=== PATIENT | male | born 1975 | race Caucasian/White ===

== ENCOUNTER 2016-09-25 06:55 | Inpatient (IN) ==
[2016-09-25] MEDS ORDERED: Ondansetron 4 MG/2 ML VIAL ONE (07:25)
[2016-09-25] MEDS ORDERED: *HR* FentaNYL (PF) 100 MCG/2 ML VIAL ONE ×3 (07:25→09:41)
[2016-09-25] MEDS ORDERED: *HR* Rocuronium Bromide 50 MG/5 ML VIAL ONE (07:25)
[2016-09-25] MEDS ORDERED: *HR* Midazolam HCl 2 MG/2 ML VIAL ONE (07:26)
[2016-09-25] MEDS ORDERED: *HR* Propofol 200 MG/20 ML VIAL IVP ONE (07:26)
--- NOTE | 2016-09-25 07:30 | Anesthesia Evaluation PreOp ---
Date of Encounter: 09/25/16 Time of Encounter: 07:27 - Past History Planned Operation: left Fem-Tib BPG Cardiac History: Denies any Significant Hx Pulmonary History: Smoker (smoked this morning), Pack/yr (2ppd x 20yrs) [employer]PAREL [employer]TERN[employer] History: Denies Any Significant HX Other Medical History: Denies Any Significant HX Anesthesia History: No Prior Anesthetic Complications (denies prior surgery) Alcohol Use: recent Drug use: none Medications and Allergies Aspirin [Lo-Dose Aspirin EC] 81 mg PO DAILY 09/05/16 [History] Atorvastatin [Lipitor] 40 mg PO HS 09/05/16 [History] Allergies No Known Allergies Allergy (Verified 09/05/16 06:37) - Meds/Allergy Pre-op Review Medications Reviewed: Yes Allergies Reviewed: Yes Beta Blockers on Current Med List: No Anesthesia Results - Labs Laboratory Tests 08/31/16 08/31/16 10:55 10:55 Hgb 18.7 H Hct 55.6 H Plt Count 269 Sodium 139 Potassium 3.7 BUN 8 Creatinine 0.95 - Imaging Additional studies: Echo shows EF 45 %, no wall motion abnormalities, no valvular abnormalities Anesthesia Exam Height: 70in Weight: 163lbs NPO (# of Hours): 8 Pain Scale: 0 Pain Scale Used: Numeric (1 - 10) - HEENT Pupil (Motor): EOMI Mallampati: II Teeth: Edentulous Oral Opening: Greater than 3 - [employer]PAREL PATTERN[employer] LOC: Oriented APPAREL PATTERN[employer] Motor: Normal RUE, Normal LUE, Normal RLE, Normal LLE, Normal Face [employer] PATTERN[employer] Sensory: Normal: RUE, LUE, RLE, LLE, Face - Cardiac Rhythm: Regular Murmur: None - Pulmonary Breath Sounds: bilateral Clear Respiratory Effort: Symmetrical Anesthesia Assess/Plan ASA Score: 3 (due to smoking, heavy alcohol, and extent of vascular disease) Modified [place] Scale for Level of Consciousness: Cooperative, oriented, and tranquil Anesthetic Plan: General Monitoring Plan: Standard Monitors, A-Line Recovery Plan: PACU (Discussed risks of GA and a-line. Questions answered and agrees to proceed.)
[2016-09-25] MEDS ORDERED: Albuterol 2.5 MG/3 ML NEBULIZER IH ONE (07:32)
[2016-09-25] MEDS ORDERED: Albuterol 2.5 MG/3 ML NEBULIZER ONE (07:33)
[2016-09-25] MEDS ORDERED: Heparin 1,000 UNITS/500 mL NS 500 ML ONE ×3 (07:38→10:51)
--- NOTE | 2016-09-25 07:39 | History & Physical Report ---
Date of Encounter: 09/25/16 Time of Encounter: 07:30 24 Hour HP Update - Instructions Instructions: If the History and Physical is less than 30 days old and was completed prior to A.M. admission and or procedure and has NOT been updated on calendar day of procedure please complete this update prior to performing procedure. - Update Patient reports changes in Medical Condition: No Changes in examination, assessment, or condition: No Changes in Medication: No Preop tests/diagnostics Reviewed: Yes Surgery Remains Indicated: Yes Consent for Planned Operative Procedure(s) Verified: Yes - Pre-Operative Checklist Preoperative Checklist Indicated: Yes Prophylactic Antibiotic Ordered: Yes Home Medications Include Beta Carlos: No Beta Carlos Taken Today (Day of Surgery): No Beta Carlos Taken Yesterday (Day Prior to Surgery): No Is VTE Prophylaxis Indicated?: Yes
[2016-09-25] MEDS ORDERED: CeFAZolin Pre 2,000 MG/100 ML 2,000 MG/100 ML BAG IVPB ONE (07:43)
[2016-09-25] MEDS ORDERED: Ringers Solution, Lactated 1,000 ML IVC SCH (07:45)
[2016-09-25] MEDS ORDERED: *HR* HYDROmorphone 2 MG/ML SYRINGE ONE ×2 (09:39→13:34)
[2016-09-25] MEDS ORDERED: Dexamethasone 4 MG/ML VIAL ONE (09:44)
[2016-09-25] MEDS ORDERED: *HR* HYDROmorphone (PF) 1 MG/ML SYRINGE IVP PRN (10:21)
[2016-09-25] MEDS ORDERED: *HR* Midazolam HCl 2 MG/2 ML VIAL IVP PRN (10:21)
[2016-09-25] MEDS ORDERED: Albuterol 2.5 MG/3 ML NEBULIZER IH PRN (10:21)
[2016-09-25] MEDS ORDERED: *HR* Promethazine 25 MG/ML VIAL IVP PRN (10:21)
[2016-09-25] MEDS ORDERED: Neostigmine Methylsulfate 3 MG/3 ML SYRINGE ONE (13:28)
--- NOTE | 2016-09-25 14:09 | Operative Note ---
Date of procedure: 09/25/16 Pre-op diagnosis: left leg PAD/claudication Post-op diagnosis: same Procedure: left tibial peroneal trunk (TPT), Ant Tibial. Post. Tibial, and Peroneal endarterectomy /thrombectomy left TPT bovine patch angioplasty left PHYSICIAN ASST endarterectomy left Fem-->TPT In Situ Saphenous vein Bypass Graft Complications: none Anesthesia: GETA Surgeon: Richmond Escalona Co-Surgeon: Sunny Farmer Estimated blood loss (cc): 150 Specimen: left tibial thrombectomy Condition: stable Disposition: PACU Procedure in Detail: History Austin Olmedo is a 41-year-old white male who was seen in the outpatient clinic for severe left lower extremity pain. 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 The symptoms worsened and he eventually was evaluated and then referred to vascular surgery. Noninvasive studies were abnormal and he went on to have an angiogram. This demonstrated occlusion of the left superficial femoral and popliteal and tibial peroneal trunk arteries. Endovascular attempts are unsuccessful as is typically the case in this type of lesion and so therefore he now comes to the operating room in an attempt to salvage the left lower extremity. Procedure After informed consent was obtained the patient was taken to the operating room. General endotracheal anesthesia was established under arterial line pressure monitoring. The left lower extremity was sterilely prepped and draped. A 2 team approach was used for this procedure due to the patient's extensive disease and need to expedite surgical care to decreased anesthesia time and operative blood loss. A timeout protocol was observed. Resection was made first at the groin to identify the greater saphenous vein. This had been scanned by myself immediately after the patient was induced and general anesthesia established. This demonstrated areas of questionable diameter in the mid to distal thigh. Therefore as our plans were to create an in situ saphenous vein bypass graft with vein needed further wrist irrigation. Using interrupted incisions the greater saphenous vein was identified. There were multiple branches but the vein ultimately was judged to be usable for a bypass Conduit. Therefore the operation was divided into 2 efforts where the groin was exposed and the femoral vessels made available. The vein was divided and the vein was then anastomosed to the distal aspect of the common femoral artery in an end to side fashion. It should be noted that upon opening the distal common femoral artery subacute to chronic thrombus was identified particularly at the orifice of the profunda femoris artery. This material was removed with excellent backflow. Also atherosclerotic material was identified in the common femoral artery. This then there fore bled to an endarterectomy of the left common femoral artery. The anastomotic connection with dense service patch to this area. Simultaneously the dissection was being conducted in the [id number] popliteal and tibial peroneal trunk and tibial areas. An extensive dissection was performed at this location and selective control was obtained of all 3 tibial vessels as well as the tibial peroneal trunk and popliteal artery. Heparin had been administered and then an arteriotomy was made over the tibial peroneal trunk. It should be noted that the vessel appeared actually greenish in color through the adventitia. Upon opening the vessel a dark brown oxidized material was present indicating chronicity of the thrombus. A formal endarterectomy wasn't necessary on the tibial peroneal trunk. This also included a formal endarterectomy of the proximal anterior tibial artery and peroneal artery and posterior tibial artery. Therefore all 3 of the separate and identified tibial vessels were endarterectomized as well as the tibial peroneal trunk. In order to facilitate the reconstruction a bovine pericardial patch change plasty was necessary over the arteriotomy on the tibial peroneal trunk. This was then sewn into position using 2 6-0 Prolene sutures. An opening was then made on the patch. The vein was then divided distally. It was flushed with heparinized saline. Using a 2 and 2.5 mm LeMaitre valvulotome the valves in the in situ vein were then lysed. Excellent pulsatile flow was achieved. The vein was then anastomosed end of vein to side of patch using 6-0 Prolene suture. After appropriate backbleeding and flushing pulsatile flow was then reestablished into the tibial system. Excellent Doppler signals were then identified at the ankle level at the posterior tibial and anterior tibial and peroneal levels. The wounds were then irrigated and hemostasis was achieved. Doppler evaluation was then made of the vein to identify any residual venous tributaries. These were identified and then ligated to prevent the formation of an arteriovenous fistula. The incisions were then closed using absorbable suture. Dry sterile dressings were applied. The patient was extubated in the operating room. He was taken to the recovery room in hemodynamically stable condition. The endarterectomized material from the tibial peroneal trunk and tibial arteries was then submitted for pathologic specimen.
--- NOTE | 2016-09-25 14:53 | Anesthesia Evaluation Post Op ---
Date of Encounter: 09/25/16 Time of Encounter: 14:51 - Vital Signs Vital Signs: Vital Signs/O2 Sat, Most Current Temp Pulse Resp BP Pulse Ox 98.2 F 95 16 127/79 96 09/25/16 14:18 09/25/16 14:38 09/25/16 14:38 09/25/16 14:38 09/25/16 14:38 - Lungs Lungs: Clear Ascult./Percussion - Airway Airway: Non-obstructed - Cardiovascular Regular Rate - Mental Status Mental Status: Alert & Oriented, Answers Appropriately - Pain Pain Scale: 3 Pain Scale used: Numeric (1 - 10) - Nausea Vomiting Nausea Vomiting: Not Present - Hydration Hydration: NPO, Pimentel catheter - Discharge PostOp Status: Transfer Patient to floor
[2016-09-25] MEDS ORDERED: *HR* Morphine 2 MG/ML SYRINGE IVP PRN (15:31)
[2016-09-25] MEDS ORDERED: Naloxone 0.4 MG/ML INJ IVP PRN (15:31)
[2016-09-25] MEDS ORDERED: Ondansetron 4 MG/2 ML VIAL IVP PRN (15:31)
[2016-09-25] MEDS ORDERED: Acetaminophen 325 MG TABLET PO PRN (15:31)
[2016-09-25] MEDS: *HR* HYDROcodone/Acet 5/325 mg TABLET PO PRN (16:28)
[2016-09-25] MEDS: Nicotine 14 MG PATCH.TD24 TD SCH (16:29)
[2016-09-25] MEDS: ceFAZolin 2,000 MG in D5% in Water 100 ML IVPB SCH (17:09)
--- NOTE | 2016-09-25 17:28 | Operative Note ---
Date of procedure: 09/25/16 Pre-op diagnosis: Peripheral vascular disease with rest pain Procedure: 1. Left femoral to tibial artery bypass with in-situ left greater saphenous vein 2. Left common femoral endaterectomy 3. Left tibioperoneal trunk, anterior tibial and posterior tibial artery endarterectomy with bovine pericardial patch angioplasty. Complications: None Anesthesia: DANIEL Surgeon: Sunny Farmer Co-Surgeon: Richmond Escalona Estimated blood loss (cc): 150 Specimen: left tibial artery thrombus Condition: stable Disposition: PACU Procedure in Detail: Indications: The patient is a 41 year old male with a history of peripheral vascular disease with rest pain. He was found on angiogram to have occlusion of his left superficial femoral, popliteal and proximal tibial arteries. Revascularization was recommended to reduce his risk of limb loss and alleviate his symptoms. Procedure: The patient was identified in the preoperative area. The risks, benefits, and alternatives of the procedure were discussed. All questions were answered. The patient was taken to the operating room and placed in supine position on the operating room table. After the induction of general endotracheal anesthesia, he was cleaned and draped in normal sterile fashion. An oblique incision was made in the left inguinal region sharply. Hemostasis was obtained with electrocautery. Through a process of blunt, sharp, and electrocautery dissection, the saphenofemoral junction and proximal left greater saphenous vein were dissected circumferentially. A longitudinal incision was made on the left medial distal thigh sharply. Hemostasis was obtained with electrocautery. Multiple skin incisions were made along the thigh and calf overlying the left greater saphenous vein. The saphenous vein was dissected circumferentialy with blunt, sharp, and electrocautery dissection. Multiple tributaries were ligated with 3-0 and 4-0 silk sutures. Distally, the vein was mobilized in the calf, clamped, divided, tied off with silk suture ligature. The vein was flushed and noted to be adequate in size and consistency for bypass. Through a process of blunt, sharp, and electrocautery dissection, the left above -knee popliteal artery was dissected proximally and distally and surrounded with vessel loops. Then, through a process of blunt, sharp, and electrocautery dissection, the left femoral vessels were dissected circumferentially and surrounded with vessel loops. The patient received heparin and additional heparin was given throughout the case. After allowing adequate time for the heparin to circulate, tension was applied to the popliteal and tibial vessel loops. A longitudinal arteriotomy was made into the popliteal artery and extended through the tibioperoneal trunk and into the posterior tibial artery. Significant thrombus and plaque was noted. An endarterctomy was then performed along the popliteal anterior tibial , peroneal and posterior tibial arteries. Retrograde flow was noted upon excision of the plaque. A bovine pericardial patch was then cut to fit the arterial defect and sutured in place with 6-0 Prolene. Tension was applied to the femoral vessel loops. An arteriotomy was made in the common femoral artery and dense, partially calcified and nearly occlusive plaque was noted in the distal common femoral artery along with chroinc thrombus. The thrombus was removed and an endarterectomy was required on the common femoral artery. This was performed with a dental freer. Endpoints were then inspected and no elevated flaps were noted. The saphenofemoral junction was clamped and the vein was transected below the clamp. The stump was oversewn with 6-0 Prolene. The vein graft was cut to fit the common femoral arteriotomy. The graft was then anastamosed with a running 6 -0 Prolene. After completing the closure, the vessels were reperfused. A 2.0mm and then a 2.5mm valvulotome was then used to lyse the valves in the nonreversed vein. After valve lysis, pulsatile flow was noted through the vein. The vein was clamped with an atraumatic clamp. A longitudinal incision in the bovine pericardial patch was made at the level of the popliteal and tibial vessels. The distal end of the saphenous vein graft was then sutured in place with a running 6-0 Prolene,. The distal arterial anastomosis was completed and prior to completing the closure, the popliteal vessels were flushed and reoccluded. Heparinized saline was infused into the lumen. The anastamosis was tied and then flow was restored. Polyphasic signals were noted distal to the distal anastomosis as well as at the posterior tibial and anterior tibial arteries. The remaining tributaries along the course of the sapehnous vein were then ligated to prevent an arterior venous fistula. The wounds were irrigated with antibiotic-containing saline. After obtaining hemostasis, the wounds were reapproximated with layers of 2-0 3- 0 and 4-0 Vicryl. Sterile dressings were applied. The patient was extubated and taken to recovery room in stable condition.
[2016-09-25] MEDS: *HR* Morphine 2 MG/ML SYRINGE IVP PRN (20:10)
[2016-09-26] MEDS: ceFAZolin 2,000 MG in D5% in Water 100 ML IVPB SCH ×2 (00:35→08:23)
[2016-09-26] MEDS: *HR* HYDROcodone/Acet 5/325 mg TABLET PO PRN ×3 (03:28→16:26)
[2016-09-26 04:39] LABS: Basophils % 0.1 %; Eosinophils % 0.1 %; Hematocrit 38.9 % (37.5-50.1); Hemoglobin 13.3 g/dL (12.9-16.9); Immature Granulocytes % 0.4 % (0-4); Lymphocytes # 2.3 K/mcL (0.6-4.6); Lymphocytes % 18.9 %; Mean Corpuscular HGB Conc 34.2 g/dL (31.6-35.5); Mean Corpuscular Hemoglobin 33.7 pg (28.0-33.3); Mean Corpuscular Volume 98.5 fL (83.0-100.0); Mean Platelet Volume 9.1 fL (9.4-12.4); Monocytes # 1.2 K/mcL (0.0-1.3); Monocytes % 9.9 %; Neutrophils # 8.4 K/mcL (1.6-8.9); Platelet Count 240 K/mcL (140-400); Red Blood Count 3.95 M/mcL (4.19-5.50); Segmented Neutrophils % 70.6 %
[2016-09-26 04:56] LABS: BUN/Creatinine Ratio 10 (6-26); Blood Urea Nitrogen 8 mg/dL (8-26); Calcium 8.8 mg/dL (8.6-10.8); Carbon Dioxide 25 mEq/L (19-29); Chloride 103 mEq/L (98-109); Glucose 106 mg/dL (70-99); Osmolality,Calculated 281 (280-300); Potassium 3.8 mEq/L (3.5-4.5); Sodium 136 mEq/L (136-145); eGFR For African Americans > 60 (> 60); eGFR For Non-African Americans > 60 (> 60)
[2016-09-26] MEDS: *HR* Morphine 2 MG/ML SYRINGE IVP PRN ×2 (08:04→13:58)
[2016-09-26] MEDS ORDERED: Aspirin Enteric Coated 81 MG Tablet PO SCH (09:00)
[2016-09-26] MEDS: Nicotine 14 MG PATCH.TD24 TD SCH (14:29)
[2016-09-26 15:22] VITALS: BP 125/101
--- NOTE | 2016-09-26 17:22 | Discharge Summary ---
Date of Encounter: 09/26/16 Time of Encounter: 17:20 - Discharge Diagnosis (1) PAD (peripheral artery disease) Priority: Primary Status: Acute Comments: Severe left lower extremity vascular occlusive disease. Acute onset in March with worsening of symptoms with Y style limiting claudication and functional limb threatening ischemia. Angiogram demonstrated left superficial femoral and popliteal artery occlusion that was not amenable to endovascular procedures. Patient was admitted for open surgical revascularization and bypass grafting. (2) Tobacco abuse Priority: Secondary Status: Chronic Comments: Long-standing history of tobacco abuse. - Discharge Medications Prescriptions: Clopidogrel [Plavix] 75 mg PO DAILY #30 tablet HYDROcodone/Acet 5/325 mg [[place] 5-325 mg] 1 tab PO Q6H PRN #20 tablet PRN Reason: Moderate Pain Nicotine Patch [Nicoderm] 14 mg TD Q24H #30 patch.td24 Home Medications: Aspirin [Lo-Dose Aspirin EC] 81 mg PO DAILY 09/05/16 [History] Atorvastatin Calcium [Lipitor] 20 mg PO DAILY 09/25/16 [History] Clopidogrel [Plavix] 75 mg PO DAILY #30 tablet 09/26/16 [Rx] HYDROcodone/Acet 5/325 mg [[place] 5-325 mg] 1 tab PO Q6H PRN #20 tablet 09/26/16 [Rx] Nicotine Patch [Nicoderm] 14 mg TD Q24H #30 patch.td24 09/26/16 [Rx] Allergies/Adverse Reactions: Allergies No Known Allergies Allergy (Verified 09/25/16 07:38) Date of admission: 09/25/16 15:07 Primary care physician: Luis Antonio Levine MD Consults: None Procedure(s) Performed: Left femoral to tibial peroneal trunk in situ saphenous vein bypass graft, left common femoral endarterectomy, left tibial peroneal trunk, anterior tibial artery, peroneal artery, and posterior tibial artery thrombectomy and endarterectomy, and left tibial peroneal trunk bovine pericardial patch angioplasty Discharging clinician: Richmond Escalona Anticipated date of discharge: 09/26/16 - Patient Status Disposition: Home, Self-Care Condition: Good Functional capacity at discharge: independent ambulation Overall status at discharge: patient is progressing back to baseline - Discharge Instructions Follow Up With: Luis Antonio Levine MD [Primary Care Provider] - 10/01/16 3:00 pm Richmond Escalona MD [Partnered Physician] - 10/10/16 9:45 am Additional Instructions: Patient is encouraged to ambulate both inside and outside. Patient may use stairs when necessary. Patient is not to drive an automobile but may be a passenger or mobile. Patient is to keep left lower extremity surgical incisions dry for a total of 5 days following surgery. Patient is to resume his usual medications and additional prescriptions will be given to patient upon discharge. Patient is to ambulate and keep left upper extremity elevated while in a seated position. - Diet and Activity Activity: increase activity as tolerated Diet: low fat, low cholesterol - Hospital Course Hospital course: Mr. Olmedo is a 41 year old male With a history of left lower extremity pain dating back to March 2016. Noninvasive studies were abnormal. Patient had development of a small black area and the tip of the toe. Patient went from claudication to lifestyle limiting claudication to limb threatening ischemia. Angiogram demonstrated occlusion of the left superficial femoral and popliteal artery. The patient underwent a complicated and extensive revascularization with in situ saphenous vein bypass grafting as well as endarterectomy and thrombectomy both proximally and distally. The patient had yazdanism of warm left foot. He had multiphasic Doppler signals at the ankle and in the inter-webspaces. He was able to ambulate in the hallways without assistance. He was felt fit for discharge on the afternoon of postoperative day #1. Wound care, medications, and all other issues were discussed prior to discharge. Time spent discussing smoking cessation with patient: more than 10 minutes - Time Spent with Patient Total time spent providing and/or coordinating discharge services: Exam Vital Signs, Last 4 Hours Temp Pulse Resp BP Pulse Ox 09/26/16 15:26 76 09/26/16 15:21 98.6 F 89 16 125/101 97 General: Present: Conversant, No Apparent Distress, Well nourished HEENT: Present: Atraumatic, Trachea midline Neck: Absent: JVD Abdomen: Present: Soft, Non-tender Vascular: Present: Normal capillary refill, Surgical incisions (Surgical incisions are clean and dry.), Other (Patient has Doppler signals at the ankle 3. There is a palpable pulse over the in situ saphenous vein bypass graft in the distal thigh.) Skin: Present: No rashes noted on visualized skin - VTE Documentation of Mechanical Device: Intermittent pneumatic compression device
== END 2016-09-26 18:05 | disposition home or self-care (01) | DRG 253 ==
LOC: SAMDAY 06:55 → 2NNU 15:07
PROVIDERS: ADMIT Surgery Vascular Surgery; ATTEND Surgery Vascular Surgery

== ENCOUNTER 2017-06-20 09:16 | Inpatient (IN) ==
--- NOTE | 2017-06-20 09:38 | Emergency Department Note ---
Disposition Clinical Impression: PVD (peripheral vascular disease) Leg pain Qualifiers: Laterality: left Qualified Code(s): M79.605 - Pain in left leg Disposition: Admitted As Inpatient Condition: Fair Time of Disposition: 10:52 Extremity Problem HPI - General Chief complaint: ED Extremity Problem,Nontraumatic Stated complaint: Left Leg pain, N/T Time Seen by Provider: 06/20/17 09:22 Source: patient Mode of arrival: ambulatory Limitations: no limitations Nursing Notes Reviewed: Yes Vital Signs Reviewed: Yes - History of Present Illness HPI Narrative: 41-year-old male with a history of smoking, peripheral vascular disease status post left femoropopliteal bypass by Dr. Khan of October 2016 percent for evaluation of left foot pain. Patient noted over the past 3 days worsening pain in his left calf and left foot. Patient noted approximately 4 hours prior to arrival that could not feel pulses over the proximal leg. Patient also noted some numbness and tingling over the dorsum of his foot. Patient states that he has not been on Plavix for the past several months due to noncompliance. Patient denies any other symptoms. No chest pain. No shortness of breath. No fevers. Patient denies any trauma associated with the foot. Pain Scale: 3 - Related Data Home Medications Medication Instructions Recorded Confirmed No Known Home Drugs 06/20/17 06/20/17 Allergies Allergy/AdvReac Type Severity Reaction Status Date / Time No Known Allergies Allergy Verified 06/20/17 11:02 All systems ED: reviewed and negative except as stated. Constitutional: Reports: as per HPI. Denies: fever Eyes: Reports: as per HPI ENT ED: Reports: as per HPI Cardiovascular: Reports: as per HPI. Denies: chest pain Respiratory: Reports: as per HPI. Denies: cough Gastrointestinal: Reports: as per HPI. Denies: abdominal pain, nausea, vomiting Genitourinary: Reports: as per HPI Musculoskeletal: Reports: as per HPI Integumentary: Reports: as per HPI Neurological: Reports: as per HPI Psychiatric: Reports: as per HPI Endocrine: Reports: as per HPI Hematological/Lymphatic: Reports: as per HPI Past Medical History - Past Medical History Medical history: Reports: no medical history Surgical history: Reports: no surgical history Psychiatric history: Reports: no psych history - Social History Smoking Status: Current every day smoker Smokeless Tobacco Status: No Alcohol use: Reports: none Drug use: Reports: none Physical Exam - General Limitations: no limitations General appearance: alert, in no apparent distress - Head Head exam: atraumatic, normocephalic, normal inspection - Eye Eye exam: Present: normal appearance, EOMI - ENT ENT exam: normal exam, normal oropharynx, mucous membranes moist - Neck Neck exam: Present: normal inspection, trachea midline - Chest Chest inspection: Present: normal inspection - Respiratory Respiratory exam: Present: normal lung sounds bilaterally. Absent: respiratory distress - Cardiovascular Cardiovascular exam: Present: regular rate, normal rhythm - Abdominal Exam Abdominal exam: Present: soft, Non-Tender - Expanded Lower Extremity Exam Hip/Pelvis exam: Present: normal inspection Upper leg exam: Present: normal inspection Knee exam: Present: normal inspection Neurovascular/Tendon exam: Present: other (Patient has palpable left femoral pulse. Patient has no pulse in the popliteal over the dorsalis pedis. Non- dopplerable pulse in the dorsalis pedis. Patient has coolness of the foot at the ankle. Delayed cap refill greater than 5 seconds.). Absent: normal capillary refill - Back Exam Back exam: Present: normal inspection - Neurological Exam Neurological exam: Present: alert, oriented X3 Course Course Narrative: Patient seen and examined. Patient ambulatory to the treatment area. Patient does have nonpalpable pulses. Patient will get bedside ABIs as well as formal ABIs in discussion with vascular surgery with labs including anticoagulation. Disposition pending. - Reevaluation(s) Reevaluation #1: Patient's MARIA ESTHER on the left is 0.28. Will talk with Dr. Khan, as it is his patient. Time: 10:41 Reevaluation #2: Patient's updated on plan of care Time: 11:35 - Consultations Consultation #1: Spoke with Dr. Escalona, who will evaluate the patient. Likely go to the OR. Patient is type and screen. Heparin drip is initiated. Time: 10:51 Vital Signs Temperature 99.7 F H 06/20/17 09:18 Pulse Rate 84 06/20/17 09:18 Respiratory Rate 16 06/20/17 09:18 Blood Pressure 108/79 06/20/17 09:18 O2 Sat by Pulse Oximetry 96 06/20/17 09:18 Temperature 98.6 F 06/20/17 13:09 Pulse Rate 59 06/20/17 13:09 Respiratory Rate 14 06/20/17 13:09 Blood Pressure 116/73 06/20/17 13:09 O2 Sat by Pulse Oximetry 100 06/20/17 13:09 Oxygen Delivery Oxygen Delivery Room Air Extremity Problem, Nontraumati - MDM Narrative Medical decision making narrative: 41-year-old male presents for evaluation of left lower leg pain. Patient is postop from a femoropopliteal bypass. Patient had ABIs which were severely diminished on the left side. Spoke with vascular, Dr. Escalona who perform the surgery in the past. Patient started on heparin and preoperative chest x-ray EKG type and screen were ordered. Patient will be taken to the OR. - Lab Data Lab results reviewed: Yes I reviewed the patient's lab results. Result diagrams: 06/20/17 09:50 06/20/17 09:50 Lab Results 06/20/17 06/20/17 06/20/17 Range/Units 09:50 09:50 09:50 WBC 16.8 H (4.3-11.1) K/mcL RBC 4.40 (4.19-5.50) M/mcL Hgb 13.8 (12.9-16.9) g/dL Hct 40.9 (37.5-50.1) % MCV 93.0 (83.0-100.0) fL MCH 31.4 (28.0-33.3) pg MCHC 33.7 (31.6-35.5) g/dL RDW 13.7 (11.5-14.5) % Plt Count 276 (140-400) K/mcL MPV 9.3 L (9.4-12.4) fL Immature Gran % 0.4 (0-4) % Seg Neutrophils % 77.3 % Lymphocytes % 13.9 % Monocytes % 6.4 % Eosinophils % 1.8 % Basophils % 0.2 % Neutrophils # 13.0 H (1.6-8.9) K/mcL Lymphocytes # 2.3 (0.6-4.6) K/mcL Monocytes # 1.1 (0.0-1.3) K/mcL Eosinophils # 0.3 (0.0-0.6) K/mcL Basophils # 0.0 (0.0-0.2) K/mcL PT 11.2 (9.4-12.1) Seconds INR 1.0 APTT 27.3 (26.0-36.0) Seconds Sodium 134 L (136-145) mEq/L Potassium 4.5 (3.5-5.1) mEq/L Chloride 106 (98-107) mEq/L Carbon Dioxide 26 (23-29) mEq/L BUN 20 (6-20) mg/dL Creatinine 1.07 (0.70-1.30) mg/dL Est GFR ( Amer) > 60 (> 60) Est GFR (Non-Af Amer) > 60 (> 60) BUN/Creatinine Ratio 19 (6-26) Glucose 136 H (70-105) mg/dL Calculated Osmolality 283 (280-300) Calcium 9.0 (8.6-10.3) mg/dL Blood Type Antibody Screen 06/20/17 Range/Units 11:09 WBC (4.3-11.1) K/mcL RBC (4.19-5.50) M/mcL Hgb (12.9-16.9) g/dL Hct (37.5-50.1) % MCV (83.0-100.0) fL MCH (28.0-33.3) pg MCHC (31.6-35.5) g/dL RDW (11.5-14.5) % Plt Count (140-400) K/mcL MPV (9.4-12.4) fL Immature Gran % (0-4) % Seg Neutrophils % % Lymphocytes % % Monocytes % % Eosinophils % % Basophils % % Neutrophils # (1.6-8.9) K/mcL Lymphocytes # (0.6-4.6) K/mcL Monocytes # (0.0-1.3) K/mcL Eosinophils # (0.0-0.6) K/mcL Basophils # (0.0-0.2) K/mcL PT (9.4-12.1) Seconds INR APTT (26.0-36.0) Seconds Sodium (136-145) mEq/L Potassium (3.5-5.1) mEq/L Chloride (98-107) mEq/L Carbon Dioxide (23-29) mEq/L BUN (6-20) mg/dL Creatinine (0.70-1.30) mg/dL Est GFR ( Amer) (> 60) Est GFR (Non-Af Amer) (> 60) BUN/Creatinine Ratio (6-26) Glucose (70-105) mg/dL Calculated Osmolality (280-300) Calcium (8.6-10.3) mg/dL Blood Type A POSITIVE Antibody Screen NEGATIVE - Radiology Data Radiology results reviewed: Yes I reviewed the patient's radiology results. Chest X-Ray 06/20/17 11:02 IMPRESSION: No acute process. D/ / Grady Duncan MD / Grady Duncan MD Interpreting Provider: Grady Duncan MD - EKG Data EKG attestation: Yes I reviewed and interpreted this EKG. EKG shows normal: sinus rhythm Rate: normal Rhythm: NSR [place]/QRS: normal Interpretation: no acute changes S.Sania - Gigi Situation: Demographics Background: Presenting Complaint Assessment: Vital Signs, Course and respsone to treatment Recommendation: Barrier(s) to disposition, Recommendation based on pending studies, treatments, or consults SLiu Report Given to: Dr. Iqra Yu Repor Time: 10:51 Attestation Statement - Attestation Attestation: I examined this patient and my medical decision-making was reviewed with the Resident Physician. I agree with the documented findings, disposition and treatment plan as described except to the extent set forth below. 41-year-old male presents ED because of left lower leg pain. He said symptoms for the past couple days ago was 2 hours prior to arrival. No recent trauma. He does have history of ischemic limited required left femoral popliteal bypass surgery last year per Dr. Escalona. He has been noncompliant with taking his medications and he continues smoking. Complains of worsening symptoms with ambulation. Oropharynx clear moist membranes dry. Chest with symmetrical diminished breath sounds bilaterally. Abdomen soft and nontender. Flanks are nontender. He has absent pulses left foot and ankle. Skin of the left foot is cool to touch. Capillary refill is greater than 5 seconds. ABIs were done and on the left side was 0.14 for the posterior tibial and 0.28 at the dorsal pedis. He was started on heparin. Dr. Escalona was contacted and he was taken directly to the OR for attempted revascularization of limb salvage The high probability of a clinically significant, sudden or life threatening deterioration of the [extremity, vascular] system(s) required my full and direct attention, intervention and personal management. The aggregate critical care time was [32] minutes. This time is in addition to time spent performing reported procedures but includes the following: [x] Data Review and interpretation [x] Patient assessment and monitoring of vital signs [x] Documentation [x] Medication orders and management
[2017-06-20 09:58] LABS: Basophils % 0.2 %; Eosinophils # 0.3 K/mcL (0.0-0.6); Eosinophils % 1.8 %; Hematocrit 40.9 % (37.5-50.1); Hemoglobin 13.8 g/dL (12.9-16.9); Immature Granulocytes % 0.4 % (0-4); Lymphocytes # 2.3 K/mcL (0.6-4.6); Lymphocytes % 13.9 %; Mean Corpuscular HGB Conc 33.7 g/dL (31.6-35.5); Mean Corpuscular Hemoglobin 31.4 pg (28.0-33.3); Mean Platelet Volume 9.3 fL (9.4-12.4); Monocytes # 1.1 K/mcL (0.0-1.3); Monocytes % 6.4 %; Platelet Count 276 K/mcL (140-400); Red Cell Distribution Width 13.7 % (11.5-14.5); Segmented Neutrophils % 77.3 %
[2017-06-20 10:04] LABS: Prothrombin Time 11.2 Seconds (9.4-12.1)
[2017-06-20 10:06] LABS: Activated Partial Thrombo Time 27.3 Seconds (26.0-36.0)
[2017-06-20 10:13] LABS: BUN/Creatinine Ratio 19 (6-26); Blood Urea Nitrogen 20 mg/dL (6-20); Carbon Dioxide 26 mEq/L (23-29); Chloride 106 mEq/L (98-107); Glucose 136 mg/dL (70-105); Osmolality,Calculated 283 (280-300); Potassium 4.5 mEq/L (3.5-5.1); Sodium 134 mEq/L (136-145); eGFR For African Americans > 60 (> 60); eGFR For Non-African Americans > 60 (> 60)
[2017-06-20] MEDS ORDERED: *HR* Heparin 5,000 UNIT/ML VIAL IVP ONE (10:49)
[2017-06-20] MEDS ORDERED: 0.9 % Sodium Chloride 500 ML ONE (10:57)
[2017-06-20] MEDS ORDERED: Heparin 25,000 UNIT/500 ML D5W 25,000 UNIT/500 ML BAG IVC SCH (11:00)
--- NOTE | 2017-06-20 11:29 | Anesthesia Evaluation PreOp ---
Date of Encounter: 06/20/17 Time of Encounter: 14:56 - Past History Planned Operation: left leg thrombectomy Cardiac History: Other (PVD) Pulmonary History: Smoker PRICE CHANGER History: Denies Any Significant HX Other Medical History: Denies Any Significant HX Anesthesia History: No Prior Anesthetic Complications, Past Anesthesia (left fem -pop 09/24) Alcohol Use: heavy Drug use: none Medications and Allergies No Known Home Drugs 06/20/17 [History] 3 Allergy/AdvReac Type Severity Reaction Status Date / Time No Known Allergies Allergy Verified 06/20/17 11:02 - Meds/Allergy Pre-op Review Medications Reviewed: Yes Allergies Reviewed: Yes Beta Blockers on Current Med List: No Anesthesia Results - Labs 06/20/17 09:50 06/20/17 09:50 - Imaging Additional studies: echo 08/24: Impressions: LVEF 45-50%, borderline low EF No cardioembolic source identified, if clinically indicated EH would provide improved diagnostic sensitivity No pulmonary hypertension. No significant valvular dysfunction. Anesthesia Exam Selected Entries 06/20/17 13:09 Temperature 98.6 F Pulse Rate 59 Respiratory Rate 14 Blood Pressure 116/73 O2 Sat by Pulse Oximetry 100 Weight: 68kg - HEENT Pupil (Motor): EOMI Mallampati: II Teeth: Edentulous Oral Opening: Greater than 3 - PRICE CHANGER LOC: Oriented PRICE CHANGER Motor: Normal RUE, Normal LUE, Normal RLE, Normal LLE, Normal Face PRICE CHANGER Sensory: Normal: RUE, LUE, RLE, LLE, Face - Cardiac Rhythm: Regular Murmur: None - Pulmonary Breath Sounds: bilateral Clear Respiratory Effort: Symmetrical Anesthesia Assess/Plan ASA Score: 3 Modified [place] Scale for Level of Consciousness: Cooperative, oriented, and tranquil Anesthetic Plan: General Monitoring Plan: Standard Monitors Recovery Plan: PACU (agrees to GA)
[2017-06-20] MEDS ORDERED: Heparin 1,000 UNITS/500 mL 1,000 ML ONE (11:51)
--- NOTE | 2017-06-20 13:48 | Vascular/Endovascular H&P ---
Date of Encounter: 06/20/17 Time of Encounter: 13:15 Assessment and Plan (1) PAD (peripheral artery disease) Current Visit: Yes Status: Acute Patient has occlusion of left lower external ring bypass graft. This dates back at least 3 days. It is unknown whether the patient may have had a failing graft due to his lack of follow-up in the clinic we do not have noninvasive testing to confirm this. The patient will now need to go to the operating room now for an emergency for limb salvage in an attempt to try to thrombectomize his bypass graft. Further bypass options are limited due to his anatomy. (2) Tobacco abuse Current Visit: Yes Status: Chronic Patient has been informed regarding the need for complete tobacco cessation. History of Present Illness Chief complaint: Left foot pain HPI: Mr. Olmedo is a 41 year old male Seen in the emergency room for 3 day history of left lower extremity pain. The patient states he had been doing some type of toe up type of maneuvers that led to a calf pain. This Pain persisted over the last 48 hours. Then beginning last night the patient developed having significant pain in the left foot at rest. He then tried to palpate his graft and noted that there was no palpable pulse in the graft and then presented himself to the emergency room earlier this morning. I was notified while I was operating and now see the patient for evaluation. His past history is quite significant for severe left lower extremity arterial occlusive disease. He had symptoms that began in March 2016. He did not make his way to vascular surgery evaluation until August 2016. At that time I did an angiogram which demonstrated severe left superficial femoral and popliteal and tibial peroneal trunk chronic total occlusions. He was taken to the operating room on September 25. He underwent a very extensive and exhaustive surgery in an attempt to try to salvage his left lower extremity. He had a left femoral to tibial peroneal trunk in situ saphenous vein bypass graft. He had a left common femoral endarterectomy a tibial peroneal trunk endarterectomy and endarterectomy of the anterior tibial posterior tibial and peroneal arteries with patch angioplasties. Postoperatively at that time the patient had hoahaoism of normal flow into the foot with palpable pulse. He was seen once in follow-up as an outpatient in the vascular surgery clinic in October. He did not return for any venous further follow-up visits or noninvasive testing despite exhaustive efforts by my staff to reach him and to have him come back in for visits. The patient had an ankle brachial index performed while he was in the emergency room and was measured on the left 0.28. The patient has not been taking his Plavix. Past Med Surg Social Fam HX - Past Medical History Medical history: no medical history Psychiatric history: no psych history - Past Surgical History Surgical History: no surgical history, LE Bypass (Left lower extremity bypass graft September 2016), other (Aortogram with bilateral lower extremity runoff August 2016) - Social History Smoking Status: Current every day smoker Smokeless Tobacco Status: No Alcohol use: none Drug use: none Medications and Allergies No Known Home Drugs 06/20/17 [History] 3 Allergy/AdvReac Type Severity Reaction Status Date / Time No Known Allergies Allergy Verified 06/20/17 11:02 All Systems Review: A 10-system review of systems was performed and is negative for pertinent findings except as documented above in the HPI. Exam Vital Signs, Last 4 Hours Temp Pulse Resp BP Pulse Ox 06/20/17 13:09 98.6 F 59 14 116/73 100 General: Present: Conversant, Well developed, Well nourished HEENT: Present: Atraumatic, Normocephaly, Trachea midline, Pupils equal Neck: Absent: JVD, Midline deformity, Tracheal deviation Cardiac: Present: Reg Rate and Rhythm, Normal S1 and S2 Lungs: Present: Normal Breath Sounds Neuro: Present: Alert and responsive, No focal deficits noted (Patient has decreased sensation and motion of the left foot.) Abdomen: Present: Soft, Non-tender. Absent: Masses Vascular: Present: Pulse, absent (The patient has no palpable pulse over the left femoral tibial peroneal trunk in situ saphenous vein bypass graft. He has no palpable pulses of the left foot and ankle. The left foot is ruborous and cool. She does have a palpable left femoral pulse without bruit.), Pulse, normal (Patient has normal palpable pulses in the right lower extremity.) Skin: Present: No rashes noted on visualized skin, Wound/ulcer(s) Musculoskeletal: Present: No Chest Wall Tenderness Results 06/20/17 09:50 06/20/17 09:50 - Imaging / Other Tests Non Invasive Vascular Testing: report reviewed
[2017-06-20] MEDS ORDERED: *HR* Succinylcholine 200 MG/10 ML VIAL IVP ONE (14:47)
[2017-06-20] MEDS ORDERED: Ondansetron 4 MG/2 ML VIAL ONE (14:47)
[2017-06-20] MEDS ORDERED: *HR* Rocuronium Bromide 50 MG/5 ML VIAL ONE (14:47)
[2017-06-20] MEDS ORDERED: Lidocaine -MPF 2% 2 ML VIAL ONE (14:47)
[2017-06-20] MEDS ORDERED: *HR* Midazolam HCl 2 MG/2 ML VIAL ONE (14:47)
[2017-06-20] MEDS ORDERED: *HR* Propofol 200 MG/20 ML VIAL IVP ONE ×2 (14:47)
[2017-06-20] MEDS ORDERED: *HR* FentaNYL (PF) 100 MCG/2 ML VIAL ONE ×2 (14:47→16:29)
[2017-06-20] MEDS ORDERED: Dexamethasone 4 MG/ML VIAL ONE (14:47)
--- NOTE | 2017-06-20 15:03 | Electrocardiograph Report ---
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
[2017-06-20] MEDS ORDERED: *HR* Alteplase (Cathflo) 2 MG VIAL IVP ONE (17:49)
[2017-06-20] MEDS ORDERED: Neostigmine Methylsulfate 3 MG/3 ML SYRINGE ONE (18:32)
[2017-06-20] MEDS ORDERED: *HR* Heparin 5,000 UNIT/ML VIAL ONE (18:32)
[2017-06-20] MEDS ORDERED: *HR* HYDROmorphone 2 MG/ML SYRINGE ONE (18:44)
--- NOTE | 2017-06-20 19:08 | Operative Note ---
Date of procedure: 06/20/17 Pre-op diagnosis: pad/ischemic rest pain Post-op diagnosis: same Procedure: thrombectomy of left fem-tibial bypass graft left leg angiogram left leg intra operative intra arterial tibial thrombolysis with tPA Complications: none Anesthesia: GETA Surgeon: Richmond Escalona Was there an assistant warehouse manager present: No Estimated blood loss (cc): 100 Specimen: 0 Condition: stable Disposition: PACU Procedure in Detail: History Austin Olmedo is a 61-year-old white male who was seen in the emergency room earlier today because of severe left lower extremity pain. The patient had undergone an extensive left lower extremity bypass graft for limb salvage in September. He was seen on the two-week follow-up but subsequent follow-ups. His ankle-brachial index is 0.28 on the left and normal on the right. He comes today emergency surgery for limb salvage. Procedure After informed consent was obtained the patient was taken to the operating room. General endotracheal anesthesia was established. The left lower extremity was sterilely prepped and draped. A timeout protocol was observed. An incision was made over the calf area to dissect down to the bypass graft. Significant amount of dense thick adhesions were encountered. Despite extensive dissection was extremely difficult to identify where the graft was located and the fact that the graft was not pulsatile. Therefore a second incision was made in the proximal thigh near the area where the pulsation ended. Here the vein was dilated. Controls obtained. A transverse graftotomy was then made over the in situ saphenous vein. Fresh thrombus was identified. Excellent inflow was assured. 3 and 4 Hebrew [place] catheters were then used to thrombectomize the graft. Acute and subacute thrombus was removed. After passing the catheter into the Patient did demonstrate retrograde bleeding. An intraoperative angiogram was then performed to better understand the patient' s graft anatomy. This was done from the femoral location with injections from the femoral to the foot. This revealed that after the thrombectomy the graft and indeed was opened as was the patch. There was no flow of her into the anterior tibial or posterior tibial artery in the runoff was via the peroneal artery. Then a Glidewire was placed into the distal peroneal. This was able to be advanced into the foot through collaterals. Because of the nature of the patient's symptoms it was thought the patient may have some residual thrombus in the distal vessels. Therefore a catheter was placed in the very distal peroneal and 10 mg of TPA was administered intra-arterially. After 15 minutes delay and angiogram of the foot and ankle was repeated. This showed only minimal improvement though the flow appeared to be better into the foot. At this point wound was irrigated. There is no further intervention appropriate this time and so therefore the wounds were closed in all locations. The areas were closed with absorbable suture. The Doppler signals identified over the dorsalis pedis artery at the ankle. The color of the foot appear improved. The dry sterile dressings were then applied to the incisions. The patient was excreted in the operating room. He was taken from the operating room to the recovery room in stable condition. Due to the limited runoff the patient will need extended anticoagulation. He also may be considered a candidate for a distal jump bypass graft to the ankle vessels if he demonstrates improvement with the surgical interventions performed this evening. If there is no postoperative improvement the patient may require amputation.
[2017-06-20] MEDS: *HR* HYDROmorphone (PF) 1 MG/ML SYRINGE IVP PRN ×4 (19:26→19:50)
[2017-06-20] MEDS ORDERED: Ringers Solution, Lactated 1,000 ML ONE (19:42)
[2017-06-20] MEDS ORDERED: Acetaminophen IV 1,000 MG/100 ML INFUS..BTL IVPB ONE (20:19)
[2017-06-20] MEDS: Heparin 25,000 UNIT/500 ML D5W 25,000 UNIT/500 ML BAG IVC SCH (20:30)
[2017-06-20] MEDS ORDERED: Ondansetron 4 MG/2 ML VIAL IVP PRN (21:30)
[2017-06-20] MEDS ORDERED: Acetaminophen 325 MG TABLET PO PRN (21:30)
[2017-06-20] MEDS ORDERED: Naloxone 0.4 MG/ML INJ IVP PRN (21:30)
[2017-06-20] MEDS ORDERED: *HR* Morphine 2 MG/ML SYRINGE IVP PRN (21:30)
[2017-06-20] MEDS: *HR* Morphine 2 MG/ML SYRINGE IVP PRN (21:49)
--- NOTE | 2017-06-20 23:46 | Anesthesia Evaluation Post Op ---
Date of Encounter: 06/20/17 Time of Encounter: 20:26 - Vital Signs Vital Signs: Vital Signs/O2 Sat/Glucose, Most Current Temp Pulse Resp BP Pulse Ox 06/20/17 20:18 98.3 F 77 16 127/81 98 06/20/17 20:10 54 16 144/83 97 06/20/17 20:00 53 16 151/85 95 06/20/17 19:50 63 18 140/99 99 - Lungs Lungs: Clear Ascult./Percussion - Airway Airway: Non-obstructed - Cardiovascular Regular Rate - Mental Status Mental Status: Alert & Oriented, Answers Appropriately - Pain Pain Scale: 0 Pain Scale used: Numeric (1 - 10) - Nausea Vomiting Nausea Vomiting: Not Present - Hydration Hydration: NPO, Pimentel catheter - Discharge PostOp Status: Transfer Patient to floor
[2017-06-20] MEDS: *HR* HYDROcodone/Acet 5/325 mg TABLET PO PRN (23:53)
[2017-06-20] MEDS: CeFAZolin Premix DUPLEX 2,000 MG/50 ML BAG IVPB SCH (23:56)
[2017-06-21] MEDS: *HR* Morphine 2 MG/ML SYRINGE IVP PRN ×2 (02:05→05:54)
[2017-06-21 04:30] LABS: Basophils % 0.1 %; Eosinophils % 0.1 %; Hematocrit 35.4 % (37.5-50.1); Immature Granulocytes % 0.4 % (0-4); Lymphocytes # 1.6 K/mcL (0.6-4.6); Lymphocytes % 14.4 %; Mean Corpuscular HGB Conc 33.1 g/dL (31.6-35.5); Mean Corpuscular Hemoglobin 31.4 pg (28.0-33.3); Mean Corpuscular Volume 94.9 fL (83.0-100.0); Mean Platelet Volume 9.4 fL (9.4-12.4); Monocytes # 0.6 K/mcL (0.0-1.3); Monocytes % 5.7 %; Neutrophils # 8.6 K/mcL (1.6-8.9); Platelet Count 233 K/mcL (140-400); Red Blood Count 3.73 M/mcL (4.19-5.50); Red Cell Distribution Width 13.5 % (11.5-14.5); Segmented Neutrophils % 79.3 %
[2017-06-21 04:39] LABS: Hemoglobin 11.7 g/dL (12.9-16.9)
[2017-06-21 04:54] LABS: BUN/Creatinine Ratio 16 (6-26); Blood Urea Nitrogen 16 mg/dL (6-20); Calcium 8.1 mg/dL (8.6-10.3); Carbon Dioxide 28 mEq/L (23-29); Chloride 105 mEq/L (98-107); Glucose 136 mg/dL (70-105); Osmolality,Calculated 283 (280-300); Potassium 5.3 mEq/L (3.5-5.1); Sodium 135 mEq/L (136-145); eGFR For African Americans > 60 (> 60); eGFR For Non-African Americans > 60 (> 60)
[2017-06-21] MEDS ORDERED: ceFAZolin 1,000 MG, Sodium Chloride IRRigation 1,000 ML IR ONE (06:00)
[2017-06-21] MEDS: CeFAZolin Premix DUPLEX 2,000 MG/50 ML BAG IVPB SCH ×2 (08:43→18:04)
[2017-06-21] MEDS: Heparin 25,000 UNIT/500 ML D5W 25,000 UNIT/500 ML BAG IVC SCH (09:43)
[2017-06-21] MEDS: *HR* HYDROcodone/Acet 5/325 mg TABLET PO PRN ×2 (09:43→17:17)
--- NOTE | 2017-06-21 12:31 | Discharge Summary ---
Date of Encounter: 06/21/17 Time of Encounter: 12:24 - Discharge Diagnosis (1) PAD (peripheral artery disease) Priority: Primary Status: Acute Comments: SEVERE LEFT LEG pad WITH SFA and Pop and TPT occlusion (2) Tobacco abuse Priority: Secondary Status: Chronic Comments: chronic tobacco abuse - Discharge Medications Prescriptions: HYDROcodone/Acet 5/325 mg [Garrett 5-325 mg] 1 tab PO Q6HR PRN #14 tablet PRN Reason: Moderate Pain Atorvastatin [Lipitor] 20 mg PO HS #30 tablet Rivaroxaban [Xarelto] 15 mg PO BID 21 Days #42 tablet Rivaroxaban [Xarelto] 20 mg PO DAILY #30 tablet Varenicline Tartrate [Chantix Starting ] 1 each PO AD #1 dosepack Home Medications: Atorvastatin [Lipitor] 20 mg PO HS #30 tablet 06/21/17 [Rx] HYDROcodone/Acet 5/325 mg [Garrett 5-325 mg] 1 tab PO Q6HR PRN #14 tablet [Rx] Rivaroxaban [Xarelto] 15 mg PO BID 21 Days #42 tablet 06/21/17 [Rx] Rivaroxaban [Xarelto] 20 mg PO DAILY #30 tablet 06/21/17 [Rx] Varenicline Tartrate [Chantix Starting ] 1 each PO AD #1 dosepack 06/21 [Rx] Allergies/Adverse Reactions: 3 Allergy/AdvReac Type Severity Reaction Status Date / Time No Known Allergies Allergy Verified 06/20/17 11:02 Date of admission: 06/20/17 12:13 Primary care physician: Luis Antonio Levine MD Consults: 06/21/17 12:23 Consult to Physical Therapy [CONS] Routine Comment: Evaluate, develop and implement POC Reason for Consult: post op ambulation assistance/ eval for adl'S Procedure(s) Performed: LEFT LEG GRAFT THROMBECTOMY/ANGIOGRAM/THROMBOLYSIS Discharging clinician: Richmond Escalona Anticipated date of discharge: 06/21/17 - Patient Status Disposition: Home Health Service Condition: Good Functional capacity at discharge: independent ambulation Overall status at discharge: patient is progressing back to baseline - Discharge Instructions Follow Up With: Luis Antonio Levine MD [Primary Care Provider] - 07/01/17 9:30 am Richmond Escalona MD [Partnered Physician] - 07/10/17 9:45 am Additional Instructions: ambulate frequently keep surgical incisions dry for 5 days. Remove dressings from left lower extremity on June 22. no manual labor. no lifting > 10 lbs. no driving. Medications will be prescribed upon discharge that includes Xarleto, Chantix, Garrett for postoperative pain relief, and Lipitor for lipid therapy. - Diet and Activity Activity: increase activity as tolerated Diet: low fat, low cholesterol - Hospital Course Hospital course: Mr. Olmedo is a 41 year old male Who was admitted from the emergency room with severe ischemia of left lower extremity and thrombosed left lower extremity bypass graft. He underwent emergency thrombectomy and thrombolytic therapy. On postoperative day one he had mandaen of strong Doppler signals to the foot with a warm left foot. Patient had a strongly palpable pulse over the length of the in situ saphenous vein bypass graft. The patient was seen by physical therapy who recommended outpatient physical therapy. Due to the patient's vascular risk factors recommended that he now go on Xarleto indefinitely. He will also be prescribed Chantix for assisted with stopping tobacco use. Also be giving atorvastatin for his vascular risk factors. Time spent discussing smoking cessation with patient: 3 to 10 minutes - Time Spent with Patient Total time spent providing and/or coordinating discharge services: Exam Vital Signs, Last 4 Hours Temp Pulse Resp BP Pulse Ox 06/21/17 11:40 97.8 F 56 18 106/66 99 General: Present: Conversant, No Apparent Distress HEENT: Present: Atraumatic, Normocephaly Neck: Absent: JVD Cardiac: Present: Reg Rate and Rhythm Vascular: Present: Normal capillary refill, Color/Temperature (left foot is warm ), Other (Palpable pulse over left lower extremity in situ saphenous vein bypass graft.). Absent: Cyanosis Skin: Present: No rashes noted on visualized skin - VTE Documentation of Mechanical Device: Intermittent pneumatic compression device
--- NOTE | 2017-06-21 16:30 | Vascular/[facility] Progress Note ---
Date of Encounter: 06/21/17 Time of Encounter: 13:00 - Assessment and plan (1) PAD (peripheral artery disease) Current Visit: Yes Status: Acute Bypass graft is patent. Significant improvement in the perfusion to the left lower extremity. He does not have a palpable pulse. I reviewed with the patient the operative findings. I explained that he may need further bypass grafting to create some type of a jump vein bypass graft to the level of the ankle. This does not need to be done at this time. At this point I recommended that the patient proceed with medical therapy and conversion from the intravenous heparin to Xarleto therapy. We'll also request physical therapy. I anticipate the patient may be ready for discharge either later today or tomorrow. (2) Tobacco abuse Current Visit: Yes Status: Chronic Patient has been informed regarding the need for complete tobacco cessation. A prescription will be given to the patient upon discharge for Chantix. - Subjective Interval history: The patient is postoperative day #1 following thrombectomy and thrombolytic therapy for left lower extremity bypass graft occlusion. He states his foot is feeling better. He has not done yet much walking. He has no ischemic rest pain. - Physical Examination General: Present: Conversant, No Apparent Distress Cardiac: Present: Reg Rate and Rhythm Vascular: Present: Color/Temperature (Left foot is warm and pink), Other ( Patient has biphasic Doppler signals over the dorsalis pedis and posterior tibial artery. There is a monophasic signal over the peroneal artery.) - VTE Documentation of Mechanical Device: Intermittent pneumatic compression device Results 06/21/17 04:23 06/21/17 04:23 Lab Results, Last 24 hours 06/20/17 06/21/17 06/21/17 21:40 04:23 04:23 WBC 10.8 Hgb 11.7 L D Hct 35.4 L Plt Count 233 APTT 56.6 H D 54.2 H Sodium Potassium Chloride Carbon Dioxide BUN Creatinine Glucose Calcium 06/21/17 06/21/17 04:23 11:28 WBC Hgb Hct Plt Count APTT 49.4 H Sodium 135 L Potassium 5.3 H Chloride 105 Carbon Dioxide 28 BUN 16 Creatinine 1.01 Glucose 136 H Calcium 8.1 L Consult Discharge Plan - Plan Additional Instructions: ambulate frequently keep surgical incisions dry for 5 days no manual labor. no lifting > 10 lbs. no driving. Referrals: Luis Antonio Levine MD [Primary Care Provider] - 07/01/17 9:30 am Richmond Escalona MD [Partnered Physician] - 07/10/17 9:45 am Prescriptions: HYDROcodone/Acet 5/325 mg [[place] 5-325 mg] 1 tab PO Q6HR PRN #14 tablet PRN Reason: Moderate Pain Atorvastatin [Lipitor] 20 mg PO HS #30 tablet Rivaroxaban [Xarelto] 15 mg PO BID 21 Days #42 tablet Rivaroxaban [Xarelto] 20 mg PO DAILY #30 tablet Varenicline Tartrate [Chantix Starting Month GAURI] 1 each PO AD #1 dosepack
[2017-06-21 16:35] VITALS: BP 106/74
[2017-06-21] MEDS ORDERED: *HR* Rivaroxaban 15 MG TABLET PO SCH (17:00)
--- NOTE | 2017-06-21 17:01 | Physician Discharge Referral ---
Home Health/Hosp Referral Info Transfer to: Home Health Attending Provider: Dr. Escalona Provider in Charge Post Discharge: PCP - Diagnosis (1) PAD (peripheral artery disease) Priority: Primary Status: Acute (2) Tobacco abuse Priority: Secondary Status: Chronic - Respiratory Orders Smoking Cessation: Smoking cessation has been advised. For more information, call the [place] Tobacco Quit Line at 1-607-UCXQ-NOW. - Services Needed Following services are medically necessary services: Physical Therapy ( Assistance with ambulation and return to activities of daily living) - Transfer Medications Prescriptions: HYDROcodone/Acet 5/325 mg [[place] 5-325 mg] 1 tab PO Q6HR PRN #14 tablet PRN Reason: Moderate Pain Atorvastatin [Lipitor] 20 mg PO HS #30 tablet Rivaroxaban [Xarelto] 15 mg PO BID 21 Days #42 tablet Rivaroxaban [Xarelto] 20 mg PO DAILY #30 tablet Varenicline Tartrate [Chantix Starting ] 1 each PO AD #1 dosepack Home Medications: Atorvastatin [Lipitor] 20 mg PO HS #30 tablet 06/21/17 [Rx] HYDROcodone/Acet 5/325 mg [[place] 5-325 mg] 1 tab PO Q6HR PRN #14 tablet [Rx] Rivaroxaban [Xarelto] 15 mg PO BID 21 Days #42 tablet 06/21/17 [Rx] Rivaroxaban [Xarelto] 20 mg PO DAILY #30 tablet 06/21/17 [Rx] Varenicline Tartrate [Chantix Starting ] 1 each PO AD #1 dosepack 06/21 [Rx] Allergies/Adverse Reactions: 3 Allergy/AdvReac Type Severity Reaction Status Date / Time No Known Allergies Allergy Verified 06/20/17 11:02 Certification: Further, I certify that my clinical findings support that this patient is homebound (i.e. absences from home require considerable and taxing effort and are for medical reasons or sabianist services or infrequently or short duration when for other reasons) because: Homebound Reason: Patient requires assistance of a person or device to safely leave home Attestation: My signature below is to certify that this patient is under my care and that I, or nurse practitioner, or a physician's business development assistant working with me, has a face-to -face encounter with this patient.
== END 2017-06-21 19:45 | disposition home health service (06) | DRG 181 ==
LOC: EMEROO 09:16 → 3BNU 12:13 → 2NNU 16:43
PROVIDERS: ADMIT Surgery Vascular Surgery; ATTEND Surgery Vascular Surgery